=== PATIENT | female | born 1945 | race Caucasian/White ===

== ENCOUNTER 2016-11-23 20:09 | Emergency (ER) | payer OTHER ==
[~2016-11-23] VITALS: Ht 157.4 cm; Wt 63.5 kg
[~2016-11-23 20:09] MED LIST: ATENOLOL25 MG PO; ATIVAN0.5 MG PO; CLEOCIN150 MG PO; IBU-6600 MG PO; KEFLEX500 MG PO; Motrin,Rufen800 MG PO; NORCO 325 MG-51 TAB PO; NORCO 5-325 TA1 EACH PO; OMEPRAZOLE DR20 M1 PO; ZOCOR20 MG PO
== END 2016-11-24 01:09 | disposition left against medical advice (07) ==
LOC: ED 20:09
DX: R07.89 Other chest pain (principal); Z88.2 Allergy status to sulfonamides; Z79.899 Other long term (current) drug therapy; V43.52XA Car driver injured in collision with other type car in traffic accident, initial encounter; Y93.89 Activity, other specified; Y92.89 Other specified places as the place of occurrence of the external cause; Y99.8 Other external cause status

== ENCOUNTER 2016-11-24 09:45 | Emergency (ER) | payer OTHER ==
[~2016-11-24] VITALS: Ht 210.8 cm; Wt 63.5 kg
== END 2016-11-24 13:08 | disposition home or self-care (01) ==
LOC: ED 09:45
DX: S22.20XA Unspecified fracture of sternum, initial encounter for closed fracture (principal); E04.1 Nontoxic single thyroid nodule; Z88.2 Allergy status to sulfonamides; Z79.899 Other long term (current) drug therapy; V49.9XXA Car occupant (driver) (passenger) injured in unspecified traffic accident, initial encounter; Y93.89 Activity, other specified; Y92.413 State road as the place of occurrence of the external cause; Y99.8 Other external cause status

== ENCOUNTER 2025-01-14 12:42 | Emergency (ER) | payer OTHER ==
[~2025-01-14] VITALS: Ht 157.4 cm; Wt 59.0 kg
[2025-01-14] MEDS ORDERED: CEPHALEXIN500 M1 PO (14:42)
[2025-01-14] MEDS ORDERED: CYCLOBENZAPRINE10 MG PO (14:42)
== END 2025-01-14 14:45 | disposition home or self-care (01) ==
LOC: ED 12:42
DX: M94.0 Chondrocostal junction syndrome [Tietze] (principal); R07.2 Precordial pain; Z88.2 Allergy status to sulfonamides; Z79.899 Other long term (current) drug therapy; Z98.890 Other specified postprocedural states; Z90.710 Acquired absence of both cervix and uterus; X50.1XXA Overexertion from prolonged static or awkward postures, initial encounter; Y93.89 Activity, other specified; Y92.89 Other specified places as the place of occurrence of the external cause; Y99.8 Other external cause status